=== PATIENT | male | born 1945 | race Caucasian/White ===

== ENCOUNTER 2017-05-10 10:53 | Observation (INO) | payer MEDICARE, OTHER ==
[2017-05-10] MEDS ORDERED: Sodium Chloride 0.9% 5 ML Syringe FLUSH PRN ×2 (11:00→12:09)
--- NOTE | 2017-05-10 11:07 | EDM.PDOC ---
Addendum entered and electronically signed by Bradley Bell PA 05/10/17 12:16 : Please use ER note as admission H and P Original Note: ED HPI GENERAL MEDICAL PROBLEM - General Chief Complaint: Syncope Stated Complaint: syncope Time Seen by Provider: 05/10/17 11:00 Source of Information: Reports: Patient, EMS History Limitations: Reports: No Limitations - History of Present Illness INITIAL COMMENTS - FREE TEXT/NARRATIVE: 71 YO WM presents to ER by EMS after syncopal episode. Pt was at a Diner when he passed out. Apparently it was unwitnessed. Pt doesn't remember event. Pt has signs of head trauma including a small 2cm laceration to left eyebrow, and mild ecchymosis under right eye. Pt denies any complaints of pain. Pt denies chest pain, denies headache, denies shortness of breath or recent illness. Pt is alert and oriented x 2. Onset: Today Location: Reports: Head Severity: Mild Improves with: Reports: None Worsens with: Reports: None Associated Symptoms: Reports: No Other Symptoms - Related Data Allergies Allergy/AdvReac Type Severity Reaction Status Date / Time No Known Drug Allergies Allergy Other Verified 05/10/17 11:51 Home Meds: Home Meds Fenofibrate Nanocrystallized [Fenofibrate] 145 mg PO DAILY 08/10/14 [History] Omeprazole 20 mg PO DAILY 08/10/14 [History] Acetaminophen [Tylenol] 650 mg PO DAILY 05/10/17 [History] Aspirin [Halfprin] 81 mg PO BRK 05/10/17 [History] Rosuvastatin [Crestor] 1 each PO DAILY 05/10/17 [History] Warfarin Sodium [Warfarin Sodium] 1 each PO ASDIRECTED 05/10/17 [History] Zaleplon [Zaleplon] 1 cap PO BEDTIME PRN 05/10/17 [History] traMADol HCl [Tramadol HCl] 1 each PO Q6HR PRN 05/10/17 [History] Past Medical History Cardiovascular History: Reports: Bypass, Hypertension Social & Family History - Tobacco Use Smoking Status *Q: Current Every Day Smoker Years of Tobacco use: 10 Packs/Tins Daily: 2 - Alcohol Use Days Per Week of Alcohol Use: 7 - Living Situation & Occupation Living situation: Reports: Single ED ROS GENERAL - Review of Systems Review Of Systems: See Below Constitutional: Reports: No Symptoms HEENT: Reports: Eye Pain Respiratory: Reports: No Symptoms Cardiovascular: Reports: No Symptoms Endocrine: Reports: No Symptoms GI/Abdominal: Reports: No Symptoms : Reports: No Symptoms Musculoskeletal: Reports: No Symptoms Skin: Reports: No Symptoms Neurological: Reports: Confusion Psychiatric: Reports: No Symptoms Hematologic/Lymphatic: Reports: No Symptoms Immunologic: Reports: No Symptoms - Physical Exam Exam: See Below Exam Limited By: Altered Mental Status General Appearance: Alert, WD/WN, Anxious Eye Exam: Bilateral Eye: EOMI, PERRL Ears: Normal External Exam, Normal Canal, Hearing Grossly Normal, Normal TMs Nose: Normal Inspection, Normal Mucosa, No Blood Throat/Mouth: Normal Inspection, Normal Lips, Normal Teeth, Normal Gums, Normal Oropharynx, Normal Voice, No Airway Compromise Head Exam: Facial Abrasions, Facial Ecchymosis, Facial Lacerations. No: Facial Tenderness Neck: Normal Inspection, Supple, Non-Tender, Full Range of Motion Respiratory/Chest: No Respiratory Distress, Lungs Clear, Normal Breath Sounds, No Accessory Muscle Use, Chest Non-Tender Cardiovascular: Normal Peripheral Pulses, Regular Rate, Rhythm, No Edema, No Gallop, No JVD, No Murmur, No Rub GI/Abdominal: Normal Bowel Sounds, Soft, Non-Tender, No Organomegaly, No Distention, No Abnormal Bruit, No Mass Neuro Exam (Abbreviated): Alert, Oriented, CN II-XII Intact, Normal Reflexes, No Motor/Sensory Deficits Back Exam: Normal Inspection, Full Range of Motion, NT Extremities: Normal Inspection, Normal Range of Motion, Non-Tender, No Pedal Edema, Normal Capillary Refill Psychiatric: Normal Affect, Normal Mood Skin Exam: Warm, Dry, Intact, Normal Color, No Rash EKG INTERPRETATION EKG Date: 05/10/17 Time: 11:25 Rhythm: NSR Rate (Beats/Min): 68 [place]: Normal P-Wave: Present QRS: Normal ST-T: Other (flipped t waves in anterior/lateral leads) QT: Normal Comparison: NA - No Prior EKG Course - Vital Signs Last Recorded V/S: Last Vital Signs Temp 36.6 C 05/10/17 11:17 Pulse 78 05/10/17 11:17 Resp 15 05/10/17 11:17 BP 145/62 H 05/10/17 11:17 Pulse Ox 94 L 05/10/17 11:17 - Orders/Labs/Meds Orders: Active Orders 24 hr Category Date Time Status EKG Documentation Completion [RC] ASDIRECTED Care 05/10/17 11:01 Active Peripheral IV Care [RC] . DIRECTED Care 05/10/17 11:01 Active Chest 1V Frontal [CR] Stat Exams 05/10/17 11:00 Taken Head wo Cont [CT] Stat Exams 05/10/17 11:00 Taken B-TYPE NATRIURETIC PEPTIDE,BNP [CHEM] Stat Lab 05/10/17 11:10 Received CK W CKMB [CHEM] Stat Lab 05/10/17 11:10 Received COMPREHENSIVE METABOLIC PN,CMP [CHEM] Stat Lab 05/10/17 11:10 Received TROPONIN I [CHEM] Stat Lab 05/10/17 11:10 Received Sodium Chloride 0.9% [Syrex Flush] Med 05/10/17 11:00 Active 5 ml FLUSH Q8HR PRN Peripheral IV Insertion Adult [OM.PC] Routine Oth 05/10/17 11:00 Ordered EKG 12 Lead [EK] Routine Ther 05/10/17 11:00 Ordered Medication Orders Sodium Chloride (Syrex Flush) 5 ml FLUSH Q8HR PRN PRN Reason: Keep Vein Open Labs: Laboratory Tests 05/10/17 05/10/17 05/10/17 Range/Units 11:10 11:10 11:10 WBC 11.3 H (5.0-10.0) 10^3/uL RBC 4.66 (4.50-6.00) 10^6/uL Hgb 14.8 (13.0-17.0) g/dL Hct 44.4 (40.0-52.0) % MCV 95.1 H (82.0-92.0) fL MCH 31.8 H (27.0-31.0) pg MCHC 33.5 (32.0-36.0) g/dL RDW 13.5 (11.5-14.5) % Plt Count 245 (150-300) 10^3/uL MPV 8.8 (7.4-10.4) fL Neut % (Auto) 62.8 (50.0-70.0) % Lymph % (Auto) 27.4 (20.0-40.0) % [place] % (Auto) 5.5 (2.0-8.0) % Eos % (Auto) 2.7 (1.0-3.0) % Baso % (Auto) 1.6 H (0.0-1.0) % Neut # (Auto) 7.1 H (2.5-7.0) 10^3/uL Lymph # (Auto) 3.1 (1.0-4.0) 10^3/uL [place] # (Auto) 0.6 (0.1-0.8) 10^3/uL Eos # (Auto) 0.3 (0.1-0.3) 10^3/uL Baso # (Auto) 0.2 H (0.0-0.1) 10^3/uL PT 25.1 H (8.9-11.4) SEC INR 2.4 H (0.9-1.1) APTT 26.5 (20.8-31.2) SEC Sodium 141 (136-145) mmol/L Potassium 4.4 (3.3-5.3) mmol/L Chloride 107 (98-115) mmol/L Carbon Dioxide 26.1 (21.0-32.0) mmol/L BUN 17 (6-25) mg/dL Creatinine 1.23 H (0.51-1.17) mg/dL Est Cr Clr Drug Dosing 56.88 mL/min Estimated GFR (MDRD) 58 mL/min Glucose 103 (70-110) mg/dL Calcium 8.5 L (8.7-10.3) mg/dL Total Bilirubin 0.6 (0.2-1.0) mg/dL AST 25 (15-37) U/L ALT 25 (12-78) U/L Alkaline Phosphatase 62 (46-116) IU/L Creatine Kinase 97 (26-276) U/L CK-MB (CK-2) 1.00 (0.00-4.30) ng/mL Troponin I 0.05 (0.00-0.070) ng/mL Total Protein 7.4 (6.4-8.2) g/dL Albumin 3.39 (3.00-4.80) g/dL Meds: Medications Generic Name Dose Route Start Last Admin Trade Name Freq PRN Reason Stop Dose Admin Sodium Chloride 5 ml 05/10/17 11:00 Syrex Flush FLUSH Q8HR PRN Keep Vein Open - Radiology Interpretation Free Text/Narrative:: CT head- NAD CXR- NAD Departure - Departure Time of Disposition: 12:07 Disposition: Refer to Observation Condition: Fair Clinical Impression: Concussion injury of brain Syncope Qualifiers: Encounter type: initial encounter - Discharge Information - My Orders Last 24 Hours: My Active Orders 05/10/17 11:00 Chest 1V Frontal [CR] Stat Head wo Cont [CT] Stat Sodium Chloride 0.9% [Syrex Flush] 5 ml FLUSH Q8HR PRN Peripheral IV Insertion Adult [OM.PC] Routine EKG 12 Lead [EK] Routine 05/10/17 11:01 EKG Documentation Completion [RC] ASDIRECTED Peripheral IV Care [RC] . DIRECTED 05/10/17 11:10 B-TYPE NATRIURETIC PEPTIDE,BNP [CHEM] Stat CK W CKMB [CHEM] Stat COMPREHENSIVE METABOLIC PN,CMP [CHEM] Stat TROPONIN I [CHEM] Stat - Assessment/Plan Last 24 Hours: My Active Orders 05/10/17 11:00 Chest 1V Frontal [CR] Stat Head wo Cont [CT] Stat Sodium Chloride 0.9% [Syrex Flush] 5 ml FLUSH Q8HR PRN Peripheral IV Insertion Adult [OM.PC] Routine EKG 12 Lead [EK] Routine 05/10/17 11:01 EKG Documentation Completion [RC] ASDIRECTED Peripheral IV Care [RC] . DIRECTED 05/10/17 11:10 B-TYPE NATRIURETIC PEPTIDE,BNP [CHEM] Stat CK W CKMB [CHEM] Stat COMPREHENSIVE METABOLIC PN,CMP [CHEM] Stat TROPONIN I [CHEM] Stat Assessment:: 1. syncope 2. confusion- baseline? Plan: 1. admit for observation- Dr Shiloh Almendarez's service 2. trop I Q4 x 4 3. repeat labs in am
[2017-05-10] MEDS ORDERED: ZALEPLON PO PRN (12:14)
[2017-05-10] MEDS ORDERED: traMADol 50 MG Tab PO PRN (12:14)
[2017-05-10] MEDS ORDERED: Aspirin 81 MG Tab.EC PO SCH (12:15)
[2017-05-10] MEDS ORDERED: Acetaminophen 325 MG Tab PO PRN (12:30)
[2017-05-10] MEDS ORDERED: Fenofibrate Nanocrystallized 145 MG Tab PO SCH (14:00)
[2017-05-10] MEDS ORDERED: Fenofibrate 160 MG Tab PO SCH (15:37)
[2017-05-10] MEDS: Nicotine 14 MG/24 Hr Patch TRDERM SCH (15:42)
[2017-05-10] MEDS: Omeprazole 20 MG Cap.CR PO SCH (15:43)
[2017-05-10] MEDS: Fenofibrate 160 MG Tab PO SCH (15:43)
[2017-05-10] MEDS: Rosuvastatin 10 MG Tab PO SCH (15:43)
[2017-05-10] MEDS: Aspirin 81 MG Tab.EC PO SCH (15:44)
[2017-05-10] MEDS: Acetaminophen 325 MG Tab PO SCH (15:44)
[2017-05-10] MEDS ORDERED: Zolpidem 5 MG Tab PO PRN (15:55)
[2017-05-10] MEDS ORDERED: Warfarin 2.5 MG Tab PO SCH (18:00)
[2017-05-10] MEDS ORDERED: Warfarin 5 MG Tab PO ONE (20:28)
[2017-05-10] MEDS ORDERED: EPINEPHrine 1:10,000 1 MG/10 ML Syringe IVPUSH PRN (21:27)
[2017-05-10] MEDS ORDERED: Atropine 0.1 MG/ML 10 ML Syringe IVPUSH PRN (21:27)
[2017-05-10] MEDS ORDERED: Nitroglycerin 0.4 MG Tab.SL SL PRN (21:27)
[2017-05-10] MEDS ORDERED: Lidocaine 2% 100 MG/5 ML Syringe IVPUSH PRN (21:27)
[2017-05-11] MEDS: Omeprazole 20 MG Cap.CR PO SCH (06:06)
[2017-05-11 06:50] VITALS: BP 114/48
[2017-05-11] MEDS: Aspirin 81 MG Tab.EC PO SCH (07:59)
[2017-05-11] MEDS: Fenofibrate 160 MG Tab PO SCH (08:01)
[2017-05-11] MEDS: Rosuvastatin 10 MG Tab PO SCH (08:01)
[2017-05-11] MEDS: Acetaminophen 325 MG Tab PO SCH (08:01)
[2017-05-11] MEDS: Nicotine 14 MG/24 Hr Patch TRDERM SCH (08:02)
--- NOTE | 2017-05-11 12:22 | PCM.DCSUM1 ---
Discharge Summary - Hospital Course Free Text/Narrative:: Patient was admitted for observation following an ER visit for a syncopal episode at a restaurant. He had serial negative troponins. He is a patient of Dr. Guillen's and I discussed this with her. Patient is feeling great and is ready to go home. - Discharge Data Discharge Date: 05/11/17 Discharge Disposition: Home, Self-Care 01 Condition: Good - Patient Summary/Data Hospital Course: He has remained stable throughout hospitalization. - Discharge Plan Home Medications: Home Meds Fenofibrate Nanocrystallized [Fenofibrate] 145 mg PO DAILY 08/10/14 [History] Omeprazole 20 mg PO DAILY 08/10/14 [History] Acetaminophen 650 mg PO Q6H PRN 05/10/17 [History] Acetaminophen [Tylenol] 650 mg PO DAILY 05/10/17 [History] Aspirin [Halfprin] 81 mg PO BRK 05/10/17 [History] Rosuvastatin [Crestor] 40 mg PO DAILY 05/10/17 [History] Warfarin Sodium [Warfarin Sodium] 2.5 mg PO SUTUTHFRSA@1800 05/10/17 [History] Warfarin [Coumadin] 5 mg PO MOFR@1800 05/10/17 [History] Zaleplon [Zaleplon] 10 mg PO BEDTIME PRN 05/10/17 [History] traMADol HCl [Tramadol HCl] 50 mg PO Q6HR PRN 05/10/17 [History] Forms: ED Department Discharge Referrals: PCP,Unobtain [Ordering Only Provider] - Erickson-Shiloh Jacinto MD [Primary Care Provider] - - Discharge Summary/Plan Comment Discharge Summary/Plan Comment: 1. Resume your home medications as directed by Dr. Guillen. 2. Follow up with Dr. Guillen in 3-4 days for recheck; sooner if any problems or worsening. - General Info Date of Service: 05/11/17 Functional Status: Reports: pain controlled - Review of Systems General: Reports: No Symptoms. Denies: Fever, Weakness HEENT: Reports: no symptoms Pulmonary: Denies: shortness of breath Cardiovascular: Denies: Chest Pain, Palpitations, Lightheadedness Gastrointestinal: Denies: Abdominal pain, Difficulty swallowing, Vomiting Genitourinary: Denies: dysuria Musculoskeletal: Denies: neck pain Skin: Denies: cyanosis, jaundice, mottled, pallor, diaphoresis Neurological: Denies: Confusion, Dizziness, Headache, Seizure Psychiatric: Denies: confusion - Patient Data Vitals - Most Recent: Last Vital Signs Temp 97.8 F 05/11/17 06:49 Pulse 60 05/11/17 06:49 Resp 20 05/11/17 06:49 BP 114/48 L 05/11/17 06:49 Pulse Ox 95 05/11/17 06:49 Weight - Most Recent: 198 lb 4.8 oz I&O - Last 24 hours: Intake & Output 05/10/17 05/11/17 05/11/17 22:59 06:59 14:59 Intake Total 1040 50 Output Total 0 Balance 1040 50 Lab Results - Last 24 hrs: Laboratory Results - last 24 hr 05/10/17 05/10/17 05/10/17 Range/Units 14:55 19:10 21:50 WBC (5.0-10.0) 10^3/uL RBC (4.50-6.00) 10^6/uL Hgb (13.0-17.0) g/dL Hct (40.0-52.0) % MCV (82.0-92.0) fL MCH (27.0-31.0) pg MCHC (32.0-36.0) g/dL RDW (11.5-14.5) % Plt Count (150-300) 10^3/uL MPV (7.4-10.4) fL Neut % (Auto) (50.0-70.0) % Lymph % (Auto) (20.0-40.0) % [place] % (Auto) (2.0-8.0) % Eos % (Auto) (1.0-3.0) % Baso % (Auto) (0.0-1.0) % Neut # (Auto) (2.5-7.0) 10^3/uL Lymph # (Auto) (1.0-4.0) 10^3/uL [place] # (Auto) (0.1-0.8) 10^3/uL Eos # (Auto) (0.1-0.3) 10^3/uL Baso # (Auto) (0.0-0.1) 10^3/uL Sodium (136-145) mmol/L Potassium (3.3-5.3) mmol/L Chloride (98-115) mmol/L Carbon Dioxide (21.0-32.0) mmol/L BUN (6-25) mg/dL Creatinine (0.51-1.17) mg/dL Est Cr Clr Drug Dosing mL/min Estimated GFR (MDRD) mL/min Glucose (70-110) mg/dL Calcium (8.7-10.3) mg/dL Troponin I 0.05 0.04 < 0.04 (0.00-0.070) ng/mL 05/11/17 05/11/17 Range/Units 07:05 07:05 WBC 9.3 (5.0-10.0) 10^3/uL RBC 4.34 L (4.50-6.00) 10^6/uL Hgb 14.0 (13.0-17.0) g/dL Hct 41.5 (40.0-52.0) % MCV 95.7 H (82.0-92.0) fL MCH 32.2 H (27.0-31.0) pg MCHC 33.6 (32.0-36.0) g/dL RDW 13.5 (11.5-14.5) % Plt Count 212 (150-300) 10^3/uL MPV 8.5 (7.4-10.4) fL Neut % (Auto) 49.8 L (50.0-70.0) % Lymph % (Auto) 37.4 (20.0-40.0) % [place] % (Auto) 8.5 H (2.0-8.0) % Eos % (Auto) 3.5 H (1.0-3.0) % Baso % (Auto) 0.8 (0.0-1.0) % Neut # (Auto) 4.6 (2.5-7.0) 10^3/uL Lymph # (Auto) 3.5 (1.0-4.0) 10^3/uL [place] # (Auto) 0.8 (0.1-0.8) 10^3/uL Eos # (Auto) 0.3 (0.1-0.3) 10^3/uL Baso # (Auto) 0.1 (0.0-0.1) 10^3/uL Sodium 142 (136-145) mmol/L Potassium 4.8 (3.3-5.3) mmol/L Chloride 108 (98-115) mmol/L Carbon Dioxide 29.9 (21.0-32.0) mmol/L BUN 17 (6-25) mg/dL Creatinine 1.41 H (0.51-1.17) mg/dL Est Cr Clr Drug Dosing 49.62 mL/min Estimated GFR (MDRD) 50 mL/min Glucose 99 (70-110) mg/dL Calcium 8.7 (8.7-10.3) mg/dL Troponin I 0.04 (0.00-0.070) ng/mL Med Orders - Current: Current Medications Acetaminophen (Tylenol) 650 mg PO DAILY [facility] Last Admin: 05/11/17 08:01 Dose: 650 mg Acetaminophen (Tylenol) 650 mg PO Q6H PRN PRN Reason: pain Aspirin (Halfprin) 81 mg PO WITHBREAKFAST [facility] Last Admin: 05/11/17 07:59 Dose: 81 mg Atropine Sulfate (Atropine 0.1 Mg/Ml) 0 mg IVPUSH ASDIRECTED PRN PRN Reason: Heart Epinephrine HCl (Epinephrine 1:10,000) 1 mg IVPUSH ASDIRECTED PRN PRN Reason: Heart Fenofibrate (Fenofibrate) 160 mg PO DAILY [facility] Last Admin: 05/11/17 08:01 Dose: 160 mg Lidocaine HCl (Xylocaine 2%) 0 mg IVPUSH ASDIRECTED PRN PRN Reason: Heart Nicotine (Habitrol) 14 mg TRDERM DAILY [facility] Last Admin: 05/11/17 08:02 Dose: 14 mg Nitroglycerin (Nitrostat) 0.4 mg SL ASDIRECTED PRN PRN Reason: Heart Omeprazole (Omeprazole) 20 mg PO ACBREAKFAST [facility] Last Admin: 05/11/17 06:06 Dose: 20 mg Rosuvastatin Calcium (Crestor) 40 mg PO DAILY [facility] Last Admin: 05/11/17 08:01 Dose: 40 mg Sodium Chloride (Syrex Flush) 5 ml FLUSH Q8HR PRN PRN Reason: Keep Vein Open Last Admin: 05/11/17 07:51 Dose: 5 ml Tramadol HCl (Ultram) 50 mg PO Q6HR PRN PRN Reason: Pain Last Admin: 05/11/17 00:21 Dose: 50 mg Warfarin Sodium (Coumadin) 2.5 mg PO SUTUWETHSA@1800 ROBERT Warfarin Sodium (Coumadin) 5 mg PO MOFR@1800 [facility]ERT Zolpidem Tartrate (Ambien) 10 mg PO BEDTIME PRN PRN Reason: Insomnia Last Admin: 05/11/17 01:34 Dose: 10 mg Discontinued Medications Aspirin (Halfprin) 81 mg PO BRK [facility] Last Admin: 05/10/17 15:34 Dose: Not Given Fenofibrate (Tricor) 145 mg PO DAILY [facility] Last Admin: 05/10/17 16:30 Dose: Not Given Fenofibrate (Fenofibrate) 160 mg PO DAILY [facility] Non-Formulary Medication (Zaleplon [Zaleplon]) 1 cap PO BEDTIME PRN PRN Reason: Insomnia Warfarin Sodium (Coumadin) 5 mg PO ONETIME ONE Stop: 05/10/17 20:29 Last Admin: 05/10/17 20:51 Dose: 5 mg - Exam General: Reports: alert, oriented, cooperative, no acute distress HEENT: Reports: Pupils equal, Pupils reactive, EOMI Neck: Reports: supple Lungs: Reports: Clear to auscultation, Normal respiratory effort Cardiovascular: Reports: Regular Rate, Regular Rhythm Abdomen: Reports: soft, no tenderness, no distension Back Exam: Reports: Full Range of Motion Extremities: Reports: no edema Skin: Reports: warm, dry, intact Neurological: Reports: no new focal deficit Psy/Mental Status: Reports: alert, normal affect, normal mood *Q Meaningful Use (DIS) - VTE *Q VTE Criteria *Q: - Stroke *Q Stroke Criteria *Q: - AMI *Q AMI Criteria *Q:
[2017-05-11] MEDS ORDERED: Warfarin 2.5 MG Tab PO SCH (18:00)
[2017-05-13] MEDS ORDERED: Warfarin 5 MG Tab PO SCH ×2 (18:00)
== END 2017-05-11 12:53 | disposition home or self-care (01) ==
LOC: KA.ED 10:53 → KA.MS 12:09
PROVIDERS: ADMIT Physician Assistant Medical; ATTEND Internal Medicine
DX: R55 Syncope and collapse (principal); I10 Essential (primary) hypertension; F17.210 Nicotine dependence, cigarettes, uncomplicated; Z95.1 Presence of aortocoronary bypass graft; Z79.82 Long term (current) use of aspirin; Z79.01 Long term (current) use of anticoagulants
CPT/HCPCS: 36415; 70450; 71010; 80048; 80053; 82550; 82553; 83880; 84484; 85025; 85610; 85730; 99285; A9270; 93005; 99217; 99220; G0378

== ENCOUNTER 2018-08-18 10:10 | Emergency (ER) | payer MEDICARE ==
--- NOTE | 2018-08-18 11:14 | EDM.PDOC ---
ED HPI GENERAL MEDICAL PROBLEM - General Chief Complaint: General Stated Complaint: EXCESSIVE SWEATING;ELEVATED HR Time Seen by Provider: 08/18/18 10:49 Source of Information: Reports: Patient, Family (brother) History Limitations: Reports: No Limitations - History of Present Illness INITIAL COMMENTS - FREE TEXT/NARRATIVE: Patient presents with report of tachycardia and diaphoresis. Patient tells me that he felt fine although the home health nurse was concerned about his heart rate. He had just walked up to the cafe for breakfast and at about 0915 this morning, stopped by home health nurse's office to visit, as he frequently does. She checked HR and called Dr. Shiloh Guillen who advised coming to ER. Patient had CABG about 10 years ago but not sure if he had an DC or just blockage. 2-3 years ago he had a stroke and has been on warfarin since then. He still smokes 1/2 ppd and isn't interested in quitting. On arrival to ER HR is normal and color is good. Patient denies any headache, lightheadedness, vision change, chest pain or pressure, N/V. We called the home health nurse that saw him and she confirmed this and added that she noticed he was very diaphoretic so she had him sit down. Inital HR was 130 and 15 minutes later still [address] Guillen. She confirms that he was feeling fine without any complaints. The home health nurse visits him weekly for INR checks. - Related Data Allergies Allergy/AdvReac Type Severity Reaction Status Date / Time No Known Drug Allergies Allergy Other Verified 08/18/18 10:23 Home Meds: Home Meds Fenofibrate Nanocrystallized [Fenofibrate] 145 mg PO DAILY 08/10/14 [History] Omeprazole 20 mg PO DAILY 08/10/14 [History] Acetaminophen 650 mg PO Q6H PRN 05/10/17 [History] Acetaminophen [Tylenol] 650 mg PO DAILY 05/10/17 [History] Aspirin [Halfprin] 81 mg PO BRK 05/10/17 [History] Rosuvastatin [Crestor] 40 mg PO DAILY 05/10/17 [History] Warfarin Sodium 2.5 mg PO DAILY 05/10/17 [History] Zaleplon 10 mg PO BEDTIME PRN 05/10/17 [History] traMADol HCl [Tramadol HCl] 50 mg PO Q6HR PRN 05/10/17 [History] Past Medical History Cardiovascular History: Reports: Bypass, High Cholesterol, Hypertension, DC Gastrointestinal History: Reports: GERD Genitourinary History: Reports: BPH Neurological History: Reports: CVA - Past Surgical History Respiratory Surgical History: Reports: None GI Surgical History: Reports: None Male Surgical History: Reports: None Neurological Surgical History: Reports: None Social & Family History - Family History Family Medical History: Noncontributory - Tobacco Use Smoking Status *Q: Current Every Day Smoker Years of Tobacco use: 55 Packs/Tins Daily: 0.2 - Caffeine Use Caffeine Use: Reports: Coffee - Recreational Drug Use Recreational Drug Use: No - Living Situation & Occupation Living situation: Reports: Single ED ROS GENERAL - Review of Systems Review Of Systems: See Below Constitutional: Denies: Fever, Chills, Malaise, Weakness HEENT: Denies: Vertigo, Vision Change Respiratory: Denies: Shortness of Breath Cardiovascular: Denies: Chest Pain, Dyspnea on Exertion, Lightheadedness, Palpitations, Syncope GI/Abdominal: Denies: Abdominal Pain, Anorexia, Diarrhea, Decreased Appetite, Nausea, Vomiting : Denies: Dysuria, Flank Pain, Frequency Musculoskeletal: Denies: Neck Pain, Shoulder Pain, Arm Pain Skin: Denies: Cyanosis, Jaundice, Mottled, Pallor, Diaphoresis Neurological: Reports: Trouble Speaking (his brother tells me that since the stroke, patient has had some difficulty with speech and memory but no other deficits). Denies: Confusion, Dizziness, Headache, Seizure, Syncope, Weakness, Change in Speech Psychiatric: Denies: Agitation, Anxiety, Confusion Hematologic/Lymphatic: Reports: Easy Bleeding (on warfarin) ED EXAM, GENERAL - Physical Exam Exam: See Below Exam Limited By: No Limitations General Appearance: Alert, WD/WN, No Apparent Distress Eye Exam: Bilateral Eye: EOMI, Normal Inspection (full visual alvarez bilat), PERRL Ears: Normal External Exam, Hearing Grossly Normal Nose: Normal Inspection, No Blood Throat/Mouth: Normal Inspection, Normal Lips, Normal Voice, No Airway Compromise Head: Atraumatic, Normocephalic Neck: Normal Inspection, Supple, Non-Tender, Full Range of Motion. No: Carotid Bruit Respiratory/Chest: No Respiratory Distress, Lungs Clear, Normal Breath Sounds, No Accessory Muscle Use Cardiovascular: Regular Rate, Rhythm, No Edema, No Murmur Peripheral Pulses: 2+: Carotid (L), Carotid (R), Radial (L), Radial (R), Posterior Tibial (L), Posterior Tibial (R) GI/Abdominal: Normal Bowel Sounds, Soft, Non-Tender, No Organomegaly, No Distention Back Exam: No: CVA Tenderness (L), CVA Tenderness (R) Extremities: Normal Inspection, Normal Range of Motion, No Pedal Edema Neurological: Alert, Oriented, CN II-XII Intact, Normal Cognition, No Motor/ Sensory Deficits, Other (Plantar/dorsiflexion 5/5 bilat; hand coil former 5/5 bilat) Psychiatric: Normal Affect, Normal Mood Skin Exam: Warm, Dry, Intact, Normal Color, No Rash EKG INTERPRETATION EKG Date: 08/18/18 Rhythm: NSR Rate (Beats/Min): 80 Comparison: No Change (There are T-wave inversion in V1-6 that were present back in 2013 also.) Course - Vital Signs Last Recorded V/S: Last Vital Signs Temp 98.2 F 08/18/18 14:38 Pulse 68 08/18/18 14:38 Resp 16 08/18/18 14:38 BP 121/62 08/18/18 14:38 Pulse Ox 99 08/18/18 14:38 - Orders/Labs/Meds Orders: Active Orders 24 hr Category Date Time Status EKG Documentation Completion [RC] ASDIRECTED Care 08/18/18 10:28 Active EKG 12 Lead [EK] Routine Ther 08/18/18 10:27 Ordered Labs: Laboratory Tests 08/18/18 08/18/18 08/18/18 Range/Units 10:45 10:45 11:05 WBC 8.38 (5.00-10.00) 10^3/uL RBC 4.69 (4.50-6.00) 10^6/uL Hgb 15.2 (13.0-17.0) g/dL Hct 44.4 (40.0-52.0) % MCV 94.7 H (82.0-92.0) fL MCH 32.4 H (27.0-31.0) pg MCHC 34.2 (32.0-36.0) g/dL RDW 14.4 (11.5-14.5) % Plt Count 244 (150-400) 10^3/uL MPV 10.1 (7.4-10.4) fL Immature Gran % (Auto) 0.1 (0.0-5.0) % Neut % (Auto) 58.6 (50.0-70.0) % Lymph % (Auto) 31.5 (20.0-40.0) % [place] % (Auto) 7.0 (2.0-8.0) % Eos % (Auto) 2.3 (1.0-3.0) % Baso % (Auto) 0.5 (0.0-1.0) % Immature Gran # (Auto) 0.01 (0.00-0.50) 10^3/uL Neut # (Auto) 4.91 (2.50-7.00) 10^3/uL Lymph # (Auto) 2.64 (1.00-4.00) 10^3/uL [place] # (Auto) 0.59 (0.10-0.80) 10^3/uL Eos # (Auto) 0.19 (0.10-0.30) 10^3/uL Baso # (Auto) 0.04 (0.00-0.10) 10^3/uL INR 3.1 H (0.9-1.1) Sodium 147 H (136-145) mmol/L Potassium 4.7 (3.3-5.3) mmol/L Chloride 107 (98-115) mmol/L Carbon Dioxide 27.0 (21.0-32.0) mmol/L Anion Gap 17.7 H (5-15) mmol/L BUN 29 H (6-25) mg/dL Creatinine 1.56 H (0.51-1.17) mg/dL Est Cr Clr Drug Dosing 45.59 mL/min Estimated GFR (MDRD) 44 mL/min Glucose 134 mg/dL Calcium 8.2 L (8.7-10.3) mg/dL Troponin I 0.08 H* (0.00-0.070) ng/mL 08/18/18 Range/Units 15:00 WBC (5.00-10.00) 10^3/uL RBC (4.50-6.00) 10^6/uL Hgb (13.0-17.0) g/dL Hct (40.0-52.0) % MCV (82.0-92.0) fL MCH (27.0-31.0) pg MCHC (32.0-36.0) g/dL RDW (11.5-14.5) % Plt Count (150-400) 10^3/uL MPV (7.4-10.4) fL Immature Gran % (Auto) (0.0-5.0) % Neut % (Auto) (50.0-70.0) % Lymph % (Auto) (20.0-40.0) % [place] % (Auto) (2.0-8.0) % Eos % (Auto) (1.0-3.0) % Baso % (Auto) (0.0-1.0) % Immature Gran # (Auto) (0.00-0.50) 10^3/uL Neut # (Auto) (2.50-7.00) 10^3/uL Lymph # (Auto) (1.00-4.00) 10^3/uL Sandoval # (Auto) (0.10-0.80) 10^3/uL Eos # (Auto) (0.10-0.30) 10^3/uL Baso # (Auto) (0.00-0.10) 10^3/uL INR (0.9-1.1) Sodium (136-145) mmol/L Potassium (3.3-5.3) mmol/L Chloride (98-115) mmol/L Carbon Dioxide (21.0-32.0) mmol/L Anion Gap (5-15) mmol/L BUN (6-25) mg/dL Creatinine (0.51-1.17) mg/dL Est Cr Clr Drug Dosing mL/min Estimated GFR (MDRD) mL/min Glucose mg/dL Calcium (8.7-10.3) mg/dL Troponin I 0.07 (0.00-0.070) ng/mL - Re-Assessments/Exams Free Text/Narrative Re-Assessment/Exam: 08/18/18 12:01 Trop is 0.08 so will recheck in 4 hours. Patient is still completely asymptomatic and a little reluctant to stay for the second trop but is willing to. I discussed case with Dr. Guillen who agrees. INR is 3.1 compared to 2.2 four days ago. 08/18/18 15:53 Second troponin is 0.07 and this is discussed with patient. We discussed findings and treatment plan and patient is discharged to home in stable condition. Departure - Departure Time of Disposition: 15:50 Disposition: Home, Self-Care 01 Condition: Good Clinical Impression: Paroxysmal sinus tachycardia, Diaphoresis, Anticoagulant allergy - Discharge Information Referrals: Shiloh Doyle MD [Primary Care Provider] - Forms: ED Department Discharge Additional Instructions: 1. Continue your warfarin as directed. 2. Follow up with your PCP in 4-7 days. 3. Follow up sooner or go to ER if worsening. - My Orders Last 24 Hours: My Active Orders 08/18/18 10:27 EKG 12 Lead [EK] Routine 08/18/18 10:28 EKG Documentation Completion [RC] ASDIRECTED - Assessment/Plan Last 24 Hours: My Active Orders 08/18/18 10:27 EKG 12 Lead [EK] Routine 08/18/18 10:28 EKG Documentation Completion [RC] ASDIRECTED
[2018-08-18 11:23] LABS: ANION GAP 17.7 mmol/L (5-15)
[2018-08-18 14:39] VITALS: BP 121/62
== END 2018-08-18 16:00 | disposition home or self-care (01) ==
LOC: KA.ED 10:10
DX: I47.1 Supraventricular tachycardia (principal); E78.00 Pure hypercholesterolemia, unspecified; R61 Generalized hyperhidrosis; I10 Essential (primary) hypertension; I25.2 Old myocardial infarction; K21.9 Gastro-esophageal reflux disease without esophagitis; F17.210 Nicotine dependence, cigarettes, uncomplicated; Z79.01 Long term (current) use of anticoagulants; Z79.899 Other long term (current) drug therapy; Z88.8 Allergy status to other drugs, medicaments and biological substances
CPT/HCPCS: 36415; 36416; 80048; 84484; 85025; 85610; 99284; 99285

== ENCOUNTER 2022-11-11 19:05 | Inpatient (IN) | payer MEDICARE ==
[2022-11-11] MEDS ORDERED: Sodium Chloride 0.9% 10 ML Syringe FLUSH PRN (19:18)
[2022-11-11 20:01] LABS: ANION GAP 15.3 mmol/L (5-15); CHLORIDE,CL 101 mmol/L (98-107); SODIUM,NA 136 mmol/L (136-145)
[2022-11-11 20:04] LABS: ESTIMATED GFR 36 mL/min (>=60)
[2022-11-11] MEDS ORDERED: Sodium Chloride 0.9% 1,000 ML IV ONE (20:09)
[2022-11-11] MEDS ORDERED: Non-Formulary Medication 1 Each (Melatonin [Melatonin] 10 MG Tablet) PO SCH (21:00)
[2022-11-11] MEDS: Sodium Chloride 0.9% 1,000 ML IV SCH (23:36)
[2022-11-12] MEDS: Melatonin 3 MG Tab PO SCH ×2 (00:37→20:44)
[2022-11-12] MEDS: Rosuvastatin 10 MG Tab PO SCH ×2 (00:37→20:44)
[2022-11-12] MEDS: Sodium Chloride 0.9% 1,000 ML IV SCH ×3 (06:18→19:32)
[2022-11-12 07:48] LABS: ANION GAP 14.5 mmol/L (5-15)
[2022-11-12] MEDS ORDERED: Acetaminophen 325 MG Tab PO PRN (11:16)
[2022-11-12] MEDS: Nicotine 14 MG/24 Hr Patch TRDERM SCH ×2 (11:41→11:43)
[2022-11-12] MEDS: Magnesium Oxide 500 MG Tab PO SCH ×2 (11:45→17:11)
[2022-11-12 12:14] LABS: RESPIRATORY SYNCYTIAL VIR NAA NEGATIVE (NEGATIVE)
[2022-11-12 12:17] LABS: CORONAVIRUS COVID-19 NAA NEGATIVE (NEGATIVE)
[2022-11-12] MEDS ORDERED: Oseltamivir 75 MG Cap PO ONE (12:39)
[2022-11-12] MEDS: Oseltamivir 6 MG/ML Susp 60 ML Bot PO SCH ×2 (20:44→21:00)
[2022-11-13] MEDS: Sodium Chloride 0.9% 1,000 ML IV SCH ×3 (02:08→12:36)
[2022-11-13 07:08] LABS: ANION GAP 11.2 mmol/L (5-15)
[2022-11-13] MEDS: Lisinopril 5 MG Tab PO SCH (08:22)
[2022-11-13] MEDS: Aspirin 81 MG Tab.EC PO SCH (08:22)
[2022-11-13] MEDS: Oseltamivir 6 MG/ML Susp 60 ML Bot PO SCH ×2 (08:25→20:05)
[2022-11-13] MEDS: Nicotine 14 MG/24 Hr Patch TRDERM SCH (08:30)
[2022-11-13] MEDS: Remove Patch - NICOTINE TRDERM SCH (08:40)
[2022-11-13] MEDS: Magnesium Oxide 500 MG Tab PO SCH (12:29)
[2022-11-13] MEDS ORDERED: Warfarin 2.5 MG Tab PO SCH (18:00)
[2022-11-13] MEDS: Melatonin 3 MG Tab PO SCH (20:04)
[2022-11-14] MEDS: Sodium Chloride 0.9% 1,000 ML IV SCH (08:05)
[2022-11-14 08:11] LABS: ANION GAP 8.7 mmol/L (5-15)
[2022-11-14] MEDS: Lisinopril 5 MG Tab PO SCH (08:20)
[2022-11-14] MEDS: Aspirin 81 MG Tab.EC PO SCH (08:20)
[2022-11-14] MEDS: Magnesium Oxide 500 MG Tab PO SCH (08:20)
[2022-11-14] MEDS: Oseltamivir 6 MG/ML Susp 60 ML Bot PO SCH ×2 (08:23→20:03)
[2022-11-14] MEDS: Remove Patch - NICOTINE TRDERM SCH (08:25)
[2022-11-14] MEDS: Nicotine 14 MG/24 Hr Patch TRDERM SCH (08:25)
[2022-11-14] MEDS ORDERED: Warfarin 2.5 MG Tab PO SCH (18:00)
[2022-11-14] MEDS: Melatonin 3 MG Tab PO SCH (20:03)
[2022-11-15 06:31] VITALS: BP 140/57; PULSE 83
[2022-11-15 07:43] LABS: ANION GAP 9.2 mmol/L (5-15)
[2022-11-15] MEDS: Nicotine 14 MG/24 Hr Patch TRDERM SCH (09:01)
[2022-11-15] MEDS: Remove Patch - NICOTINE TRDERM SCH (09:01)
[2022-11-15] MEDS: Lisinopril 5 MG Tab PO SCH (09:36)
[2022-11-15] MEDS: Magnesium Oxide 500 MG Tab PO SCH (09:36)
[2022-11-15] MEDS: Aspirin 81 MG Tab.EC PO SCH (09:36)
[2022-11-15] MEDS: Oseltamivir 6 MG/ML Susp 60 ML Bot PO SCH (09:37)
[2022-11-15] MEDS ORDERED: Warfarin 2.5 MG Tab PO ONE (18:00)
== END 2022-11-15 11:45 | DRG 565 ==
LOC: KA.ED 19:05 → KA.MS 21:25
PROVIDERS: ADMIT Family Medicine; ATTEND Family Medicine
DX: T79.6XXA Traumatic ischemia of muscle, initial encounter (principal); I13.0 Hypertensive heart and chronic kidney disease with heart failure and stage 1 through stage 4 chronic kidney disease, or unspecified chronic kidney disease; N17.9 Acute kidney failure, unspecified; I42.9 Cardiomyopathy, unspecified; I50.22 Chronic systolic (congestive) heart failure; J10.1 Influenza due to other identified influenza virus with other respiratory manifestations; R79.1 Abnormal coagulation profile; E83.42 Hypomagnesemia; Z20.822 Contact with and (suspected) exposure to COVID-19; Z66 Do not resuscitate; E88.09 Other disorders of plasma-protein metabolism, not elsewhere classified; E86.0 Dehydration; H54.7 Unspecified visual loss; R53.1 Weakness; R74.8 Abnormal levels of other serum enzymes; S00.81XA Abrasion of other part of head, initial encounter; I69.311 Memory deficit following cerebral infarction; F51.01 Primary insomnia; I69.30 Unspecified sequelae of cerebral infarction; R29.6 Repeated falls; I12.9 Hypertensive chronic kidney disease with stage 1 through stage 4 chronic kidney disease, or unspecified chronic kidney disease; N18.32 Chronic kidney disease, stage 3b; I25.10 Atherosclerotic heart disease of native coronary artery without angina pectoris; F17.210 Nicotine dependence, cigarettes, uncomplicated; E78.00 Pure hypercholesterolemia, unspecified; K21.9 Gastro-esophageal reflux disease without esophagitis; Z91.14 Patient's other noncompliance with medication regimen; Z79.82 Long term (current) use of aspirin; N40.0 Benign prostatic hyperplasia without lower urinary tract symptoms; Z90.49 Acquired absence of other specified parts of digestive tract; Z79.01 Long term (current) use of anticoagulants; Z79.899 Other long term (current) drug therapy; Z95.1 Presence of aortocoronary bypass graft; W19.XXXA Unspecified fall, initial encounter
CPT/HCPCS: 0241U; 36415; 51701; 70450; 71045; 80048; 80053; 80307; 81001; 82150; 82550; 83605; 83690; 83735; 83880; 84484; 84550; 85025; 85610; 87040; 93005; 93010; 96360; 97535-GO; 99284; 99285-25; A9270-GY; J3490; J7030

== ENCOUNTER 2024-10-26 08:43 | Emergency (ER) | payer MEDICARE, OTHER ==
[2024-10-26] MEDS ORDERED: Sodium Chloride 0.9% 10 ML Syringe FLUSH PRN (08:47)
[2024-10-26 09:00] LABS: BASOPHILS ABSOLUTE AUTO 0.03 10^3/uL (0.00-0.10); BASOPHILS PERCENT AUTO 0.3 % (0.0-1.0); EOSINOPHILS ABSOLUTE AUTO 0.14 10^3/uL (0.10-0.30); EOSINOPHILS PERCENT AUTO 1.2 % (1.0-3.0); HEMATOCRIT 48.8 % (40.0-52.0); HEMOGLOBIN 16.4 g/dL (13.0-17.0); IMMATURE GRAN ABSOLUTE AUTO 0.02 10^3/uL (0.00-0.50); IMMATURE GRAN PERCENT AUTO 0.2 % (0.0-5.0); LYMPHOCYTES ABSOLUTE AUTO 3.18 10^3/uL (1.00-4.00); LYMPHOCYTES PERCENT AUTO 28.4 % (20.0-40.0); MEAN CORPUSCULAR HEMOGLOBIN 30.6 pg (27.0-31.0); MEAN CORPUSCULAR HGB CONC 33.6 g/dL (32.0-36.0); MEAN PLATELET VOLUME 10.4 fL (7.4-10.4); MONOCYTES ABSOLUTE AUTO 0.63 10^3/uL (0.10-0.80); MONOCYTES PERCENT AUTO 5.6 % (2.0-8.0); NEUTROPHILS ABSOLUTE AUTO 7.21 10^3/uL (2.50-7.00); NEUTROPHILS PERCENT AUTO 64.3 % (50.0-70.0); PLATELET COUNT,PLT 233 10^3/uL (150-400); RED BLOOD CELL COUNT 5.36 10^6/uL (4.50-6.00); RED CELL DISTRIBUTION WIDTH 13.9 % (11.5-14.5); WHITE BLOOD CELL COUNT,WBC 11.21 10^3/uL (5.00-10.00)
[2024-10-26] MEDS: Sodium Chloride 0.9% 1,000 ML IV ONE (09:00)
[2024-10-26 09:18] LABS: ALANINE AMINOTRANSFERASE,ALT 28 U/L (14-63); ALKALINE PHOSPHATASE 113 U/L (46-116); ANION GAP 15.7 mmol/L (5-15); ASPARTATE AMNIOTRANSFERASE,AST 22 U/L (15-37); BILIRUBIN TOTAL 0.7 mg/dL (0.2-1.0); BLOOD UREA NITROGEN,BUN 16 mg/dL (7-18); CALCIUM 8.8 mg/dL (8.7-10.3); CARBON DIOXIDE,CO2 25.7 mmol/L (21.0-32.0); CHLORIDE,CL 101 mmol/L (98-107); CREATININE 1.09 mg/dL (0.51-1.17); GLUCOSE RANDOM 103 mg/dL (70-140); POTASSIUM,K 4.4 mmol/L (3.5-5.1); PROTEIN TOTAL,TP 7.9 g/dL (6.4-8.2); SODIUM,NA 138 mmol/L (136-145)
[2024-10-26 09:20] LABS: ESTIMATED GFR 69 mL/min (>=60)
[2024-10-26 09:22] LABS: INR 1.2 (0.9-1.1); PROTHROMBIN TIME 12.5 SEC (9.3-12.2); PTT,PARTIAL THROMBOPLSTIN TIME 27.2 SEC (23.3-34.9)
[2024-10-26] MEDS: Sodium Chloride 0.9% 1,000 ML ONE (09:38)
[2024-10-26] MEDS ORDERED: Sodium Chloride 0.9% 50 ML IV SCH (10:00)
[2024-10-26] MEDS: Iopamidol 755 Mg/ML 100 ML Bottle IV ONE ×2 (10:00→10:33)
[2024-10-26] MEDS: Sodium Chloride 0.9% 50 ML IV SCH (10:33)
[2024-10-26 12:12] VITALS: BP 185/85; PULSE 95
== END 2024-10-26 10:52 ==
LOC: KA.ED 08:43
DX: I63.512 Cerebral infarction due to unspecified occlusion or stenosis of left middle cerebral artery (principal); I25.10 Atherosclerotic heart disease of native coronary artery without angina pectoris; I25.2 Old myocardial infarction; I12.9 Hypertensive chronic kidney disease with stage 1 through stage 4 chronic kidney disease, or unspecified chronic kidney disease; N18.30 Chronic kidney disease, stage 3 unspecified; Z86.73 Personal history of transient ischemic attack (TIA), and cerebral infarction without residual deficits; Z90.49 Acquired absence of other specified parts of digestive tract; Z79.82 Long term (current) use of aspirin; Z79.01 Long term (current) use of anticoagulants; Z79.899 Other long term (current) drug therapy
CPT/HCPCS: 51702; 70450; 70496; 70498; 80053; 84484; 85025; 85610; 85730; 87426-QW; 93005; 96360; 99285-25; J3490; J7030; Q3014; Q9967